=== PATIENT | male | born 1965 | race Caucasian/White ===

== ENCOUNTER 2018-07-24 17:46 | Inpatient (IN) | payer OTHER ==
[~2018-07-24] VITALS: Ht 188 cm; Wt 99.0 kg
[2018-07-24 18:25] LABS: BASOPHIL % 0.3 % (0-2); PLATELET COUNT 181 x10^3mcL (130-400); RED CELL DISTRIBUTION WIDTH 12.4 % (11.5-14.5)
[2018-07-24 18:35] LABS: CARBON DIOXIDE 28.2 mmol/L (21-32); CHLORIDE SERUM 108 mmol/L (98-107); GFR1 > 60 mL/min; GLUCOSE SERUM 113 mg/dL (74-106); POTASSIUM SERUM 4.5 mmol/L (3.5-5.1); SODIUM SERUM 144 mmol/L (136-145)
[2018-07-24 18:39] LABS: ALBUMIN 3.6 g/dL (3.4-5.0); ALKALINE PHOSPHATASE 108 U/L (46-116); ALT/SGPT 48 U/L (16-63); AST/SGOT 17 U/L (15-37); BILIRUBIN TOTAL 0.25 mg/dL (0.20-1.00); TOTAL PROTEIN, SERUM 7.3 g/dL (6.4-8.2)
[2018-07-24] MEDS ORDERED: KEPPRA1000 M1 PO (19:14)
[2018-07-24] MEDS ORDERED: BAYER ASPIRIN R81 MG (19:14)
[2018-07-24] MEDS ORDERED: ELIQUIS5 MG (19:14)
[2018-07-24] MEDS ORDERED: LISINOPRIL2.5 MG PO (19:14)
[2018-07-24 20:04] LABS: CHOLESTEROL/HDL RATIO 5.8; MAGNESIUM 1.9 mg/dL (1.8-2.4)
[2018-07-24 20:39] VITALS: BP 112/73
[2018-07-24 20:44] VITALS: Ht 188 cm; Wt 99.0 kg
[2018-07-25 01:12] LABS: AMPHETAMINE QUAL UR NONE DETECTED (See below)
[2018-07-25 01:18] LABS: microscopic required? YES; urine erythrocyte 1+ (NEGATIVE)
[2018-07-25 05:47] VITALS: BP 117/64
[2018-07-25 07:17] LABS: BASOPHIL % 0.3 % (0-2); PLATELET COUNT 164 x10^3mcL (130-400); RED CELL DISTRIBUTION WIDTH 12.8 % (11.5-14.5)
[2018-07-25 07:54] LABS: CALCIUM 8.9 mg/dL (8.5-10.1); CARBON DIOXIDE 30.1 mmol/L (21-32); CHLORIDE SERUM 105 mmol/L (98-107); GFR1 > 60 mL/min; GLUCOSE SERUM 84 mg/dL (74-106); POTASSIUM SERUM 4.1 mmol/L (3.5-5.1); SODIUM SERUM 145 mmol/L (136-145)
[2018-07-25 08:16] LABS: T4(THYROXINE) 6.2 ug/dL (4.7-13.3)
[2018-07-25 08:47] VITALS: BP 131/80
[2018-07-25 10:06] LABS: ERYTHROCYTE SED RATE 9 mm/hr (0-15)
[2018-07-25 14:08] VITALS: BP 102/55
[2018-07-25 17:11] VITALS: BP 107/63
[2018-07-25 20:50] VITALS: BP 106/59
[2018-07-26 06:02] VITALS: BP 107/57
[2018-07-26 09:04] VITALS: BP 99/56
[2018-07-26 13:41] VITALS: BP 138/79
[2018-07-26 17:16] LABS: RAPID PLASMA REAGIN Non Reactive (Non Reactive); RHEUMATOID ARTHRITIS FACTOR <10.0 IU/mL (0.0-13.9)
[2018-07-26 17:34] VITALS: BP 119/62
[2018-07-26 21:01] VITALS: BP 123/73
[2018-07-27 05:44] VITALS: BP 105/60
[2018-07-27 08:45] VITALS: BP 103/71
[2018-07-27 12:40] VITALS: BP 123/97
[2018-07-27 13:01] VITALS: BP 123/97
[2018-07-27 18:15] VITALS: BP 107/69
[2018-07-27 20:43] VITALS: BP 106/65
== END 2018-07-27 21:38 | disposition other institution (70) | DRG 311 ==
LOC: ED 17:46 → DU 19:03
PROVIDERS: Emergency Medicine; Internal Medicine
DX: I24.9 Acute ischemic heart disease, unspecified (principal); G93.41 Metabolic encephalopathy; I25.10 Atherosclerotic heart disease of native coronary artery without angina pectoris; J45.909 Unspecified asthma, uncomplicated; M50.322 Other cervical disc degeneration at C5-C6 level; I50.9 Heart failure, unspecified; I11.0 Hypertensive heart disease with heart failure; G40.909 Epilepsy, unspecified, not intractable, without status epilepticus; F17.200 Nicotine dependence, unspecified, uncomplicated; J44.9 Chronic obstructive pulmonary disease, unspecified; Z88.8 Allergy status to other drugs, medicaments and biological substances; Z91.048 Other nonmedicinal substance allergy status; I25.2 Old myocardial infarction; Z79.899 Other long term (current) drug therapy; Z79.82 Long term (current) use of aspirin; Z86.718 Personal history of other venous thrombosis and embolism; Z86.711 Personal history of pulmonary embolism
CPT/HCPCS: 82962; 83880; 86431; A9500; J2270; J2785; J7620; J8597; Q0092